=== PATIENT | male | born 1990 | race African-American/Black ===

== ENCOUNTER 2019-10-09 10:47 | Emergency (ER) | payer BC ==
[~2019-10-09] VITALS: Ht 175.3 cm; Wt 161.6 kg
[2019-10-09] MEDS ORDERED: SODIUM CHLORIDE 0.9% 1000ML 1,000 ML IV STA (11:19)
[2019-10-09] MEDS ORDERED: CARVEDILOL12.5 MG PO (11:25)
[2019-10-09] MEDS ORDERED: DILTIAZEM 24HR180 M1 (11:25)
[2019-10-09] MEDS ORDERED: LISINOPRIL10 MG PO (11:25)
--- NOTE | 2019-10-09 11:54 | Diagnostic Imaging Report ---
EXAMINATION: CXR 2 VIEW - HOPD INDICATION: Shortness of breath COMPARISON: None FINDINGS: LINES/TUBES:None LUNGS:EKG leads overlie the chest. PLEURA:No pleural effusion or pneumothorax. MEDIASTINUM:The cardiomediastinal silhouette appears normal in size and shape. BONES/SOFT TISSUES:No acute osseous injury. ABDOMEN:No free air under the diaphragm. IMPRESSION: No focal pneumonia or pulmonary edema. Signed by: Yessy Doe MD on 10/09/2019 11:51 AM
--- NOTE | 2019-10-09 11:55 | Emergency Department Note ---
History of Present Illnes History of Present Illness Chief Complaint: General Medicine Complaints History of Present Illness This is a 29 year old male reporting that he was at work and suddenly felt lightheaded, dizzy, nauseated, tingly and short of breath for a few minutes like he was going to pass out, he pulled up to an urgent care and drank a bottle of water and felt better, called his work and then started to go to his next job and felt the symptoms again but this time his heart felt weird so they told him to come get checked out so he came here as he was close to here. Historian: Patient Arrival Mode: Car Business Office Director Required: No Onset (how long ago): hour(s) Radiation: Reports non-radiation Severity: moderate Onset quality: gradual Duration (how long): hour(s) Timing of current episode: constant Progression: waxing and waning Relieving factors: none Exacerbating factors: none Associated symptoms: Reports other Treatments prior to arrival: none Past Medical/Family History Physician Review I have reviewed the patient's past medical and family history. Any updates have been documented here. Past Medical History Recent Fever: No Clinical Suspicion of Infectio: No New/Unexplained Change in Ment: No Past Medical History: Hypertension Past Surgical History: Knee Replacement Social History Smoking Cessation: Never Smoker Counseling Performed: No Alcohol Use: Social Any Illegal Drug Use: No TB Exposure/Symptoms: No Physically hurt or threatened: No Family History Family history of heart diseas: Yes Other Any Pre-Existing Lines (PICC,: No Is patient up to date on immun: Yes Last Flu: UTD Last Pneumovax: none Review of Systems Review of Systems Constitutional: Reports no symptoms, Reports malaise, Reports weakness EENTM: Reports no symptoms Cardiovascular: Reports no symptoms Respiratory: Reports as per HPI, Reports dyspnea Gastrointestinal: Reports no symptoms, Reports as per HPI Genitourinary: Reports no symptoms Musculoskeletal: Reports muscle pain Integumentary: Reports no symptoms Neurological: Reports no symptoms Psychological: Reports no symptoms Endocrine: Reports no symptoms Hematological/Lymphatic: Reports no symptoms Physical Exam Related Data Allergies: Coded Allergies: No Known Allergies (Unverified , 10/09/19) Triage Vital Signs Vital Signs Date Time Temp Pulse Resp B/P (MAP) Pulse Ox O2 Delivery O2 Flow Rate FiO2 10/09/19 10:57 98.2 59 18 132/70 99 Physical Exam CONSTITUTIONAL Constitutional: Present well-developed, Present well-nourished, Present morbidly obese HENT HENT: Present normocephalic, Present atraumatic, Present oropharynx clear/moist, Present nose normal HENT L/R: Present left ext ear normal, Present right ext ear normal EYES Eyes: Reports PERRL, Reports conjunctivae normal NECK Neck: Present ROM normal PULMONARY Pulmonary: Present effort normal, Present breath sounds normal CARDIOVASCULAR Cardiovascular: Present regular rhythm, Present heart sounds normal, Present capillary refill normal, Present normal rate GASTROINTESTINAL Abdominal: Present soft, Present nontender, Present bowel sounds normal GENITOURINARY Genitourinary: Present exam deferred SKIN Skin: Present warm, Present dry MUSCULOSKELETAL Musculoskeletal: Present ROM normal NEUROLOGICAL Neurological: Present alert, Present oriented x 3, Present no gross motor or sensory deficits PSYCHOLOGICAL Psychological: Present mood/affect normal, Present judgement normal Results Laboratory Lab results reviewed: Yes Procedures 12 Lead ECG Interpretation ECG Interpretation : ECG: ECG 1 Business Office Director: Interpreted by ED physician Date: Oct 09, 2019 Time: 11:13 Prior ECG tracings: reviewed Rhythm: sinus bradycardia Other findings: no other findings (non specific ST, and T wave) Clinical Impression: abnormal ECG Assessment & Plan Medical Decision Making MDM dehydration, chemical exposure, heat exhaustion Reassessment Reassessment time: 13:55 Reassessment doing better Assessment & Plan Final Impression: (1) Dehydration after exertion (2) Heat exhaustion Depart Disposition: HOME, SELF-CARE Last Vital Signs Date Time Temp Pulse Resp B/P (MAP) Pulse Ox O2 Delivery O2 Flow Rate FiO2 10/09/19 10:57 98.2 59 18 132/70 99 Home Meds Reported Medications Carvedilol (CARVEDILOL) 12.5 Mg Tablet, 25 MG PO BID, #60 TAB 10/09/19 Diltiazem Hcl (DILTIAZEM 24HR CD) 180 Mg Cap.er.24h, 240 DAILY 10/09/19 Lisinopril (LISINOPRIL) 10 Mg Tablet, 40 MG PO DAILY, #30 TAB 10/09/19 Medications in the ED Sodium Chloride 1,000 ml @ 0 mls/hr Q0M STAT IV ; Start 10/09/19 at 11:19; Stop 10/09/19 at 11:22; Status DC YAIR MANCUSO MD Oct 09, 2019 11:55
[2019-10-09] MEDS ORDERED: SODIUM CHLORIDE 0.9% 1000ML 1,000 ML ONE (12:12)
[2019-10-09 14:22] VITALS: BP 124/68
== END 2019-10-09 14:16 | disposition home or self-care (01) ==
LOC: FSED 12:25
DX: E86.0 Dehydration (principal); T67.5XXA Heat exhaustion, unspecified, initial encounter; Y99.0 Civilian activity done for income or pay; I10 Essential (primary) hypertension
CPT/HCPCS: 71046; 80053; 81003; 82553; 84484; 85025; 93005; 99284; J7030